=== PATIENT | male | born 1960 | race Two or more races ===

== ENCOUNTER 2023-11-21 20:24 | Emergency (ER) | payer OTHER ==
[~2023-11-21] VITALS: Ht 180.3 cm; Wt 205.0 kg
[2023-11-21 20:43] VITALS: BP 159/78; PULSE 80; RESP 16; TEMP 98.6
[2023-11-21] MEDS ORDERED: EMPA10TA3 PO (21:39)
[2023-11-21] MEDS ORDERED: LOSA100T59 PO (21:39)
[2023-11-21] MEDS ORDERED: ROSU40TA70 PO (21:39)
[2023-11-21] MEDS ORDERED: METO-416 PO (21:39)
[2023-11-21] MEDS ORDERED: LEVO250T75 PO (23:11)
== END 2023-11-21 23:52 | disposition home or self-care (01) ==
LOC: EMS 20:28
DX: I10 Essential (primary) hypertension (principal); E11.9 Type 2 diabetes mellitus without complications; E78.00 Pure hypercholesterolemia, unspecified
CPT/HCPCS: 99283